=== PATIENT | female | born 1960 | race Caucasian/White ===

== ENCOUNTER 2025-01-11 05:58 | Day surgery (SDC) | payer MEDICARE, OTHER ==
--- NOTE | 2025-01-04 14:01 | ELECTROCARDIOGRAPH REPORT ---
[facility] Test Date: 2025-01-04 Test Time: 13:57:58 Pat Name: ROSSY RODRIGUES Department: [facility]-PRE-OP Patient ID: [facility]-[id number] Room: Gender: F [employer]: CHIRAG : 1960 Requested By: BEVERLY VELASQUEZ Order Number: [id number] Reading MD: Dr. NONA Rock Measurements Intervals [place] Rate: 82 P: 26 [place]: 144 QRS: 3 QRSD: 87 T: 54 QT: 382 QTc: 446 Interpretive Statements Sinus rhythm Electronically Signed On 01-04-2025 19:50:[address] NONA Rock Please click the below link to view image of tracing.
[2025-01-04 14:16] LABS: BASOPHILS # (AUTO) 0.1 X10'3 (0-0.2); BASOPHILS % (AUTO) 0.9 % (0-1); EOSINOPHILS # (AUTO) 0.1 X10'3 (0-0.9); EOSINOPHILS % (AUTO) 1.8 % (0-6); LYMPHOCYTES # (AUTO) 2.2 X10'3 (1.1-4.8); MEAN CORPUSCULAR HEMOGLOBIN 31.3 PG (27.0-31.0); MEAN CORPUSCULAR HGB CONC 32.9 g/dL (33.0-36.5); MEAN PLATELET VOLUME 9.1 FL (7.4-10.4); MONOCYTES # (AUTO) 0.5 X10'3 (0-0.9); MONOCYTES % (AUTO) 6.6 % (2-12); NEUTROPHILS # (AUTO) 5.3 X10'3 (1.8-7.7); NEUTROPHILS % (AUTO) 63.7 % (42-75); PRE OP HEMATOCRIT 41.5 % (35.0-45.0); PRE OP HEMOGLOBIN 13.7 g/dL (12.0-16.0); PRE OP PLATELET COUNT 258 X10'3 (140-440); PRE OP WHITE BLOOD COUNT 8.3 10'3 (4.8-10.8); RED BLOOD COUNT 4.37 X10'6 (4.20-5.60); RED CELL DISTRIBUTION WIDTH 15.3 % (11.5-14.5)
[2025-01-04 14:30] LABS: ALBUMIN 3.6 G/DL (3.4-5.0); ALBUMIN/GLOBULIN RATIO 1.1 (1.1-1.5); ALKALINE PHOSPHATASE 88 IU/L (46-116); BLOOD UREA NITROGEN 19 MG/DL (7-18); BUN/CREATININE RATIO 20.9 (10.0-20.0); CALCIUM 8.9 MG/DL (8.5-10.1); CHLORIDE 105 MMOL/L (99-107); CREATININE 0.91 MG/DL (0.40-0.90); PRE OP ALT 31 U/L (30-65); PRE OP ANION GAP 7 (8-16); PRE OP AST 15 U/L (10-37); PRE OP BILIRUB, TOTAL 0.2 MG/DL (0.0-1.0); PRE OP GLUCOSE 130 MG/DL (70-104); PRE OP SODIUM 144 MMOL/L (135-145); TOTAL CARBON DIOXIDE 32.5 MMOL/L (24-32); TOTAL PROTEIN 6.9 G/DL (6.4-8.2); eGFR 62 ML/MIN
--- NOTE | 2025-01-04 15:30 | RADIOLOGY REPORT ---
Procedure: CT CT CHEST ION Reason for study/Clinical History: OTHER DISORDERS OF LUNG Comparison Study: None Exam Date: 01/04/2025 02:36 PM TECHNIQUE: Multidetector CT of the chest was performed from the lung apices to the upper abdomen with out the use of intravenous contract. Axial, coronal and sagittal multiplanar reformats were performed . Radiation Dose Information: CT Dose: CTDI volume is 25 mGy. Dose-length product is 250 mGy*cm The dose indicators for CT are the volume Computed Tomography (CT) Dose Index (CTDIvol) and the Dose Length Product (DLP), and are measured in units of mGy and mGy-cm, respectively. These indicators are not patient dose, but values generated from the CT scanner acquisition factors. The report includes radiation exposure data for exposures received during this examination. FINDINGS: Lower neck: Normal thyroid. Lungs: 2 mm pulmonary nodule superior segment right lower lobe. Scarring in the right upper lobe. Heart/Vascular Structures: Normal heart size. No pericardial effusion. Lymph Nodes: No adenopathy Pleura: No pleural effusion or significant pneumothorax. Musculoskeletal: No acute osseous abnormality. Soft tissues: Normal. Upper abdomen: Limited portions of the upper abdomen are unremarkable. IMPRESSION: 2 mm pulmonary nodule superior segment right lower lobe. Scarring in the right upper lobe. Radiation optimization: All CT scans at this facility use at least one of these dose optimization guy hniques: automated exposure control mA and/or kV adjustment per patient size (includes targeted exam s where dose is matched to clinical indication) or iterative reconstruction.
[~2025-01-11] VITALS: Ht 165.1 cm; Wt 103.7 kg
[2025-01-11] VITALS (11 sets, daily range): BP systolic 126–141; BP diastolic 74–94; PULSE 82–102; RESP 13–28; TEMP 98.2; O2SAT 91–93
[~2025-01-11 05:58] MED LIST: BUDE10.7 INH; EZET10TA48 PO; IPRA3AMP31 NEB; OMEP40CA21 PO
[2025-01-11] MEDS: ringers solution, lacted 1,000 ML IV SCH (06:45)
[2025-01-11] MEDS: famotidine 20mg tablet PO ONE (06:46)
[2025-01-11] MEDS: albuterol 2.5 MG/3 ML nebule NEB ONE (07:26)
[2025-01-11] MEDS ORDERED: LIDOCAINE 4% (40MG/ML) topical solution 50ml **BRONCH ONLY ONE (07:58)
[2025-01-11] MEDS ORDERED: midazolam 1 mg/ML 2ml injection ONE (08:09)
[2025-01-11] MEDS ORDERED: fentaNYL/PF 50MCG/1 ML 2ML syringe ONE (08:09)
[2025-01-11] MEDS ORDERED: propofol inj 20 ML IV ONE (08:32)
[2025-01-11] MEDS ORDERED: morphine 2 MG/ML inj. syringe IV PRN (08:40)
[2025-01-11] MEDS ORDERED: hydrALAZINE 20mg/ml inj. IV PRN (08:40)
[2025-01-11] MEDS ORDERED: ringers solution, lacted 1,000 ML IV SCH (08:40)
[2025-01-11] MEDS ORDERED: HYDROmorphone/PF 0.2 MG/ML SYRINGE IV PRN ×2 (08:40)
[2025-01-11] MEDS ORDERED: morphine 4 MG/ML inj SYRINge IV PRN (08:40)
[2025-01-11] MEDS ORDERED: labetalol 20mg/4ml (5mg/ml) syringe IV PRN (08:40)
[2025-01-11] MEDS ORDERED: ondansetron/PF 4mg/2ml inj IV PRN (08:40)
--- NOTE | 2025-01-11 18:32 | OPERATIVE REPORT ---
DATE OF SURGERY: 01/11/2025 DICTATING PHYSICIAN: Shelton Pedro MD PROCEDURE: Bronchoscopy. The patient was set up for a robotic bronchoscopy but the mass that we are going to go after had disappeared, so we ended up doing a regular bronchoscopy along with EBUS, endobronchial ultrasound bronchoscope and also the patient was sedated by anesthesia. PREOPERATIVE DIAGNOSES: Hemoptysis and also paratracheal lymphadenopathy, chest mass had disappeared. POSTOPERATIVE DIAGNOSES: Hemoptysis and also paratracheal lymphadenopathy, chest mass had disappeared. DESCRIPTION OF PROCEDURE: The patient was sedated by anesthesia, introduced the bronchoscope through the oropharynx area, there was a lot of significant collapsibility of the airway with significant erythema throughout also. Lots of mucopurulent material that was aspirated on both sides of the bronchi. I got a bronchial wash on both lower lobes and then did a BAL on the right upper lobe, but the mucosa was very erythematous and also with significant bleeding very easily, just pouring saline or anything that the patient will start bleeding from the area and also significant what appears to be collapse on the airway from possible tracheomalacia versus just weight present on the patient's airway. We did an EBUS and got 4 different areas, 7, 10R and 10L lymph nodes that were about a centimeter in size, BAL and bronchial wash. The patient tolerated the procedure well. No complications. Shelton Pedro MD TID: [id number] RECEIPT: [id number] CANDI/SEVERIANO/DUNIA
--- NOTE | 2025-01-14 09:15 | PATHOLOGY REPORT ---
[facility] [address] [place] [address] NON-NON DESTRUCTIVE TESTING INSPECTOR CYTOLOGY REPORT CaseNumber: [id number] Surgeon:Shelton Pedro M.D. CLINICAL INFORMATION CLINICAL INFORMATION: Patient paratracheal LA. CLINICAL INFORMATION: Patient paratracheal LA. DIAGNOSIS DIAGNOSIS: LYMPH NODE, STATION 7, 10R, 10L; FINE NEEDLE ASP - ADEQUATE FOR CYTOLOGIC EVALUATION. - NEGATIVE FOR MALIGNANCY ON CURRENT SPECIMEN. - BENIGN LYMPH NODE PARENCHYMA AND BENIGN RESPIRATORY ELEMENTS INCLUDING RESPIRATORY EPITHELIAL CELLS WITH RARE ATYPIA (FAVOR REACTIVE). MICROSCOPIC DESCRIPTION MICROSCOPIC DESCRIPTION: Microscopic examination is performed on one Papanicolaou stained double cyto spin slide and one H&E stained cell block slide. The preparation is adequate for cytologic evaluation . Present is benign lymph node parenchyma generally consisting of small lymphocytes with focal crush artifact. In addition, there are respiratory elements including ciliated respiratory epithelial cells with focal atypia (favor reactive), smooth muscle and bronchial cartilage. No malignancy is identifi ed on the current specimen. (bb) GROSS DESCRIPTION GROSS DESCRIPTION: Received labeled with the patient's name, number, and "FNA 7 10R, 10L" is a 30 mL bottle of cloudy cytostat red. One double cytospin slide and one cell block are prepared. The cell bl ock is submitted as A1. The time at which the specimen is removed is 814. The time at which the sp ecimen is placed in formalin is 0815. (cs) Electronically signed by: Mauri Ramirez D.O. 01/14/2025 8:40:00 AM
== END 2025-01-11 09:46 | disposition home or self-care (01) ==
LOC: PAS 05:58
PROVIDERS: ATTEND Internal Medicine Critical Care Medicine
DX: R04.2 Hemoptysis (principal); R59.1 Generalized enlarged lymph nodes; K21.9 Gastro-esophageal reflux disease without esophagitis; J44.9 Chronic obstructive pulmonary disease, unspecified; E78.5 Hyperlipidemia, unspecified; G43.909 Migraine, unspecified, not intractable, without status migrainosus; Z98.51 Tubal ligation status; Z98.890 Other specified postprocedural states; Z79.899 Other long term (current) drug therapy; Z87.891 Personal history of nicotine dependence; Z88.8 Allergy status to other drugs, medicaments and biological substances; Z87.01 Personal history of pneumonia (recurrent)
CPT/HCPCS: 31624; 31653; 36415; 71250; 80053; 82948; 85025; 87015; 87070; 87077; 87102; 87116; 87186; 87206; 88173; 88305; 93005; 94640; 94760; A4618; A4620; J2250; J2704; J3010; J7120; Z7506; Z7512; Z7610; 31625; 31626; 31628; 31645; 31654

== ENCOUNTER 2025-03-14 12:23 | Outpatient (CLI) | payer MEDICARE, OTHER ==
--- NOTE | 2025-03-15 18:11 | CONSULTATION ---
DATE OF CONSULTATION: 03/14/2025 DICTATING PHYSICIAN: Veronica Aguirre M.S., [facility]-PASTORAL ASSISTANT MODIFIED BARIUM SWALLOW STUDY REPORT REFERRING PHYSICIAN: FRANCIS Headley. HISTORY OF PRESENT ILLNESS: The patient is a 64-year-old female who consents to this evaluation. The patient's history was obtained from the patient and medical records. The patient reports symptoms of dysphagia including choking 1-2 times a day on food, liquid, and saliva. She reports that this has been going on for years, but has gotten progressively worse with time. She stated that she has a diagnosis of a hiatal hernia and that she had an endoscopy in August. The medical records state that the patient has diagnosis of GERD and esophagitis. The patient also reported COPD and a recent lung infection of unknown cause. CURRENT DIET: In terms of caffeine, the patient has 2-3 cups of coffee on a daily basis. She has not utilized tobacco products since she quit smoking on 08/18/2016. She has been sober from alcohol for 23 years. She notes that she consumes chocolate once or twice monthly and the same goes for ice cream. She occasionally puts cheese on items and if she needs milk, she utilizes a plant-based milk. A typical breakfast consists of toast with butter and yogurt. She does not snack in the morning. Typical lunch may be sandwiches where sometimes the bread is actually made out of deviled eggs or leftovers from dinner. She snacks in the afternoon on chips and crackers. Dinner is eaten between 4:00 and 5:00 p.m. and may be chicken burgers or turkey meatballs with gravy and rice. She does note that she has to be very careful with rice as it gets stuck to her throat and sometimes she has dessert of ice cream, but she has been having that less often as she notes that she has more difficulties with ice cream. She goes to bed between 9:00 and 9:30. MEDICATIONS: Calcium 500 mg one tablet once daily orally, Prilosec 40 mg one tablet once daily orally, ezetimibe 10 mg one tablet once daily orally. PARAMETERS: The patient is seated in a lateral 90-degree view and administered the usual protocol of thin and nectar thick liquids, puree and solid consistencies as well as self-regulated boluses of thin liquids from a cup. RESULTS: In the oral stage of the swallow, lingual strength is mild to moderately reduced and there is a moderate oral residue following the initial swallow of boluses. In the pharyngeal stage of the swallow, tongue base retraction is mild to moderately reduced. There is delayed swallow initiation to the level of the vallecula. Elevation of the hyothyroid complex is accomplished with moderately reduced epiglottic inversion. It is noted that for the majority of the boluses that when she would swallow, it looked as if the epiglottis would hit the posterior pharyngeal wall and prevent it from completely retroflexing to cover the airway. This appeared to be due to also the moderately decreased anterior and superior movement of the hyoid as well as prevertebral thickening at C3-C4. It was noted, however, that if the patient utilized an effortful swallow that the anterior and superior movement of the hyoid did increase and so that way the epiglottis was able to fully retroflex. The patient demonstrated a mild to moderate pharyngeal residue following the initial swallow of boluses and this would be in the vallecula above the epiglottis when the epiglottis would not fully retroflex. In terms of airway safety, the patient demonstrated aspiration on the 5 mL thin liquid bolus that she was able to independently clear. ANTERIOR, POSTERIOR VIEW: In the AP plane, the bolus split symmetrically between the piriform sinuses. It was noted that the patient had slowed propulsion of the bolus through the esophagus. Right when that bolus would hit the level of the clavicle, it would begin to stick for a moment and then slowly make its way down through the esophagus. IMPRESSION: The patient demonstrates with what appears to be a moderate pharyngoesophageal stage swallowing disorder characterized by reduced tongue base retraction, delayed swallow initiation to the level of the vallecula and incomplete movement of the hyothyroid complex. The patient demonstrated with aspiration of the 5 mL thin liquid bolus that she was able to independently clear. With the decreased movement of the hyothyroid complex, as she utilized an effortful swallow, she was able to demonstrate more movement of the hyothyroid complex to allow the epiglottis to fully invert. The patient also demonstrated a prevertebral thickening on C3-C4. DIAGNOSES: R13.14 dysphagia, pharyngoesophageal phase, K21.9 gastroesophageal reflux disease. PATIENT EDUCATION: Immediately following modified barium swallow study, the patient was able to view the results. The patient was able to see how the current status of the oral motor and swallowing mechanism decreases her ability to swallow normally. She was educated on needing to utilize an effortful swallow when she would swallow foods and liquids at home. She was also educated on a recommendation for speech therapy to strengthen the musculature involved in swallowing and agreed to participate at this time. RECOMMENDATIONS: * It is recommended that the patient receive swallowing therapy one time weekly for 12 weeks to improve the strength and range of motion of the oral motor and swallowing musculature to ensure airway safety protection and prevent aspiration. * It is recommended that the patient utilize an effortful swallow whenever she is eating and drinking in order to increase that movement of the hyothyroid complex. LONG-TERM GOALS: The patient will maintain adequate hydration/nutrition with optimum safety and efficiency of swallow function on p.o. intake without overt signs and symptoms of aspiration for the highest possible diet level. PROGNOSIS: Prognosis for the patient is good in terms of the patient's motivation and willingness to learn. FUNCTIONAL ORAL INTAKE: The FOIS was administered to establish and document a change in the functional eating activities of this patient over time. This is a 7-point scale with 1 indicating no oral intake and totally tube dependent and 7 indicating total oral intake with no restrictions. This patient received a 6 which indicates she has a total oral diet with multiple consistencies without special preparation, but with specific food limitations and precautions. She was also educated in those dietary modifications for laryngopharyngeal reflux disease at this time. G-CODE: [id number]. Thank you very much for asking me to participate in the care of this kind patient. Should you have any questions regarding this evaluation or recommendations, please do not hesitate to contact me at [phone]. During this examination, 2:51 minutes of fluoroscopy time and 30.77 CAK mGy were utilized. Veronica Aguirre M.S., [facility]-PASTORAL ASSISTANT TID: [id number] RECEIPT: [id number] ABBY/CECY BUSTAMANTE
== END 2025-03-14 23:59 | disposition home or self-care (01) ==
LOC: RAD 12:23
PROVIDERS: ATTEND Physician Assistant Medical
DX: R13.10 Dysphagia, unspecified (principal); K21.9 Gastro-esophageal reflux disease without esophagitis
CPT/HCPCS: 74230